=== PATIENT | female | born 1935 | race African-American/Black ===

== ENCOUNTER 2016-11-17 02:14 | Observation (INO) | payer OTHER, BC ==
[~2016-11-17] VITALS: Ht 160 cm; Wt 71.2 kg
[~2016-11-17 02:14] MED LIST: CALCIUM + D 601 EACH PO; FIBER TABS625 MG PO; KEPPRA250 MG PO; MULTI-DAY VITA1 EACH PO; NORVASC10 MG PO; PEPCID COMPLET1 EACH PO; PRAVASTATIN SOD40 MG PO; STOOL SOFTENER100 MG PO; VITAMIN B6100 MG PO; VITAMIN C500 M1 PO; ZETIA10 MG PO
[2016-11-17 03:24] LABS: HEMATOCRIT 40.4 % (36.0-46.0); MCH 31.2 PG (29.0-34.0); MCHC 32.7 G/DL (30.0-36.0); MCV 95.5 FL (83-99); MEAN PLAT.VOLUME 9.8 uM^3 (9.5-12.4); PLATELET COUNT 181 K/uL (156-360); RBC DIS.WIDTH-CV 12.1 % (11.8-14.6); RBC DIS.WIDTH-SD 42.7 % (39-53); RED BLOOD COUNT 4.23 M/uL (3.80-5.20)
[2016-11-17 03:35] LABS: CHLORIDE 109 mEq/L (99-109); POTASSIUM 3.7 mEq/L (3.7-5.4); SODIUM 142 mEq/L (136-147)
[2016-11-17 03:37] LABS: GLUCOSE 90 mg/dL (70-99)
[2016-11-17 03:38] LABS: ANION GAP 8 MEQ/L (2-14)
[2016-11-17 03:41] LABS: GFR ESTIMATE (CALCULATED) > 59 mL/min/; INTER. NORMALIZED RATIO 0.9; PROTHROMBIN TIME 9.5 (9.2-11.2); PTT 24.3 (25-32)
[2016-11-17 03:42] LABS: UREA NITROGEN (BUN) 14 mg/dL (9-23)
[2016-11-17 03:49] LABS: TROP-I INTERPRETATION NEGATIVE; TROPONIN-I < 0.01 ng/mL (0.0-0.30)
[2016-11-17 05:48] LABS: HDL CHOLESTEROL 59 MG/DL (Desirable>=50); LDL CHOLESTEROL 102 mg/dL (Desirable<100); NON-HDL CHOLESTEROL 115 mg/dL (Desirable<160); SAMPLE HEMOLYSIS CHECK 0; SAMPLE ICTERIC CHECK 0; SAMPLE LIPEMIA CHECK 0; TOTAL CHOLESTEROL 174 mg/dL (Desirable<200); TRIGLYCERIDES 67 MG/DL (Normal: <150)
[2016-11-17] MEDS ORDERED: VENTOLIN HFA18 GM IH (05:54)
[2016-11-17] MEDS ORDERED: LIPITOR40 MG PO (05:55)
[2016-11-17] MEDS ORDERED: BUSPAR5 MG PO (05:56)
[2016-11-17] MEDS ORDERED: ZONEGRAN100 MG PO (06:00)
[2016-11-17 07:12] LABS: Estimated Average Glucose 114 mg/dL (70-123); HEMOGLOBIN A1c (GLYCOHEMOGLOB) 5.6 % HGB (Below 5.7)
[2016-11-17 07:26] VITALS: BP 147/65
[2016-11-17] MEDS ORDERED: ZONISAMIDE100 MG PO (08:37)
[2016-11-17] MEDS ORDERED: ZONISAMIDE50 MG PO (08:37)
[2016-11-17] MEDS ORDERED: CARBAMAZEPINE200 MG PO (15:00)
== END 2016-11-17 16:21 | disposition home or self-care (01) ==
LOC: EME 02:14 → EDOF 04:09 → 5WEST 07:11
PROVIDERS: Emergency Medicine; Physician Assistant Medical
DX: G50.0 Trigeminal neuralgia (principal); I69.151 Hemiplegia and hemiparesis following nontraumatic intracerebral hemorrhage affecting right dominant side; I10 Essential (primary) hypertension; E78.5 Hyperlipidemia, unspecified; G40.89 Other seizures; Z86.718 Personal history of other venous thrombosis and embolism; R20.0 Anesthesia of skin
CPT/HCPCS: 70450; 70551; 71020; 80048; 80061; 83036; 84484; 85027; 85610; 85730; 93005; 93880; 99281; 99285; G0378; J1644

== ENCOUNTER 2017-06-09 11:43 | Observation (INO) | payer BC ==
[~2017-06-09] VITALS: Ht 160 cm; Wt 70.7 kg
[~2017-06-09 11:43] MED LIST changes: +BUSPAR5 MG PO; +CARBAMAZEPINE200 MG PO; +LIPITOR40 MG PO; +VENTOLIN HFA18 GM IH; +ZONEGRAN100 MG PO; +ZONISAMIDE100 MG PO; +ZONISAMIDE50 MG PO
[2017-06-09 12:05] LABS: BASOPHIL (%) 0.8 % (0-1); EOSINOPHIL (%) 3.4 % (0-5); EOSINOPHIL COUNT 0.2 K/uL (0-0.3); HEMATOCRIT 38.5 % (36.0-46.0); HEMOGLOBIN 12.8 G/DL (11.9-15.5); IMMATURE GRANULOCYTE (%) 0.4 % (0.0-0.7); LYMPHOCYTE (%) 47.8 % (15-42); LYMPHOCYTE COUNT 2.3 K/uL (1.0-2.8); MCH 32.2 PG (29.0-34.0); MCHC 33.2 G/DL (30.0-36.0); MCV 96.7 FL (83-99); MONOCYTE (%) 8.6 % (3-12); MONOCYTE COUNT 0.4 K/uL (0-0.8); NEUTROPHIL COUNT 1.9 K/uL (1.8-6.4); PLATELET COUNT 200 K/uL (156-360); RBC DIS.WIDTH-CV 12.2 % (11.8-14.6); RBC DIS.WIDTH-SD 44.3 % (39-53); RED BLOOD COUNT 3.98 M/uL (3.80-5.20); WHITE BLOOD COUNT 4.8 K/uL (4.1-10.2)
[2017-06-09 12:20] LABS: AMYLASE 81 IU/L (1-118); CHLORIDE 109 mEq/L (99-109); POTASSIUM 3.5 mEq/L (3.7-5.4); SODIUM 140 mEq/L (136-147)
[2017-06-09 12:21] LABS: GLUCOSE 93 mg/dL (70-99)
[2017-06-09 12:24] LABS: SERUM ETHYL ALCOHOL < 10 mg/dL
[2017-06-09 12:25] LABS: GFR ESTIMATE (CALCULATED) > 59 mL/min/
[2017-06-09 12:26] LABS: UREA NITROGEN (BUN) 13 mg/dL (9-23)
[2017-06-09 12:27] LABS: TROP-I INTERPRETATION NEGATIVE; TROPONIN-I < 0.01 ng/mL (0.0-0.30)
[2017-06-09 12:28] LABS: LIPASE 17 U/L (1.0-51.0)
[2017-06-09] MEDS ORDERED: CALCIUM 500 MG1 EACH PO (15:01)
[2017-06-09] MEDS ORDERED: CENTRUM SILVER1 EAC3 PO (15:01)
[2017-06-09] MEDS ORDERED: ASCORBIC ACID500 M3 PO (15:01)
[2017-06-09] MEDS ORDERED: CYANOCOBALAM1000 MCG PO (15:01)
[2017-06-09] MEDS ORDERED: VITAMIN B-650 MG PO (15:01)
[2017-06-09] MEDS ORDERED: GABAPENTIN300 MG PO (15:01)
[2017-06-09] MEDS ORDERED: VITAMIN D31000 UNIT PO (15:02)
[2017-06-09 15:27] LABS: APPEARANCE CLEAR ((CLEAR)); BILIRUBIN NEGATIVE; BLOOD NEGATIVE; COLOR STRAW ((YELLOW)); GLUCOSE (STRIP) NEGATIVE; KETONES NEGATIVE; LEUKOCYTES SMALL; NITRITE NEGATIVE; PROTEIN (STRIP) NEGATIVE; SPECIFIC GRAVITY 1.005 (1.000-1.030); UROBILINOGEN 0.2 MG/DL (0.2-1.0)
[2017-06-09 15:31] LABS: BACTERIA NONE SEEN /HPF; EPITHELIAL CELLS NONE SEEN /HPF; MUCUS NONE SEEN /LPF; RED BLOOD CELLS 0-5 /HPF (0-5); UCUL ADDED? NO; WHITE BLOOD CELLS 0-5 /HPF (0-5)
[2017-06-09 15:45] LABS: AMPHETAMINE NEGATIVE (500 ng/mL); BARBITURATES NEGATIVE (200 ng/mL); BENZODIAZEPINES NEGATIVE (150 ng/mL); BUPRENORPHINE NEGATIVE (10 ng/mL); COCAINE NEGATIVE (150 ng/mL); METHADONE NEGATIVE (200 ng/mL); METHAMPHETAMINE NEGATIVE (500 ng/mL); OPIATES (MORPHINE) NEGATIVE (100 ng/mL); OXYCODONE NEGATIVE (100 ng/mL); PHENCYCLIDINE NEGATIVE (25 ng/mL); PROPOXYPHENE NEGATIVE (300 ng/mL); THC CANNABINOIDS NEGATIVE (50 ng/mL); TRICYCLIC ANTIDEPRESSANTS NEGATIVE (300 ng/mL)
[2017-06-09 16:12] LABS: HDL CHOLESTEROL 45 MG/DL (Desirable>=50); LDL CHOLESTEROL 96 mg/dL (Desirable<100); NON-HDL CHOLESTEROL 114 mg/dL (Desirable<160); TOTAL CHOLESTEROL 159 mg/dL (Desirable<200); TRIGLYCERIDES 92 MG/DL (Normal: <150)
[2017-06-09 16:53] VITALS: BP 157/72
[2017-06-09 20:00] VITALS: BP 117/60
[2017-06-09 21:15] LABS: Estimated Average Glucose 114 mg/dL (70-123); HEMOGLOBIN A1c (GLYCOHEMOGLOB) 5.6 % HGB (Below 5.7)
[2017-06-09 22:57] VITALS: BP 120/56
[2017-06-10 03:45] VITALS: BP 111/56
[2017-06-10 07:51] VITALS: BP 112/53
[2017-06-10 11:18] VITALS: BP 109/57
== END 2017-06-10 18:50 | disposition home or self-care (01) ==
LOC: EME 11:43 → EDOF 14:46 → 5WEST 14:46 → EDOF 14:46 → ENRESERV 14:48 → 5WEST 15:52
PROVIDERS: Emergency Medicine; Nurse Practitioner Family
DX: G45.9 Transient cerebral ischemic attack, unspecified (principal); I10 Essential (primary) hypertension; G40.909 Epilepsy, unspecified, not intractable, without status epilepticus; Z85.841 Personal history of malignant neoplasm of brain; Z86.73 Personal history of transient ischemic attack (TIA), and cerebral infarction without residual deficits; E78.5 Hyperlipidemia, unspecified; E87.6 Hypokalemia; J43.9 Emphysema, unspecified; Z86.718 Personal history of other venous thrombosis and embolism; Z96.641 Presence of right artificial hip joint; Z90.710 Acquired absence of both cervix and uterus; Z88.6 Allergy status to analgesic agent
CPT/HCPCS: 70450; 70553; 71010; 80048; 80061; 81003; 82150; 82948; 83036; 83690; 84484; 85025; 85610; 85730; 86850; 86900; 86901; 93005; 99281; 99285; G0378; G0480; G8987 GO CI; G8988 GO CH; G8989 GO CI; J1650; J2060